=== PATIENT | female | born 1990 | race Two or more races ===

== ENCOUNTER 2019-03-27 01:33 | Emergency (ER) | payer BC ==
[~2019-03-27] VITALS: Ht 167.6 cm; Wt 59.0 kg
[2019-03-27 01:44] VITALS: BP 116/69
[2019-03-27] MEDS ORDERED: DIPHENHYDRAMINE 25MG CAPSULE PO ONE (03:45)
[2019-03-27] MEDS ORDERED: PREDNISONE 20MG TABLET PO ONE (03:45)
[2019-03-27] MEDS ORDERED: FAMOTIDINE 20MG TABLET PO ONE (03:45)
== END 2019-03-27 04:52 | disposition home or self-care (01) ==
LOC: ER 01:54
DX: S70.362A Insect bite (nonvenomous), left thigh, initial encounter (principal); S70.361A Insect bite (nonvenomous), right thigh, initial encounter; L03.116 Cellulitis of left lower limb; L03.115 Cellulitis of right lower limb; W57.XXXA Bitten or stung by nonvenomous insect and other nonvenomous arthropods, initial encounter; Y93.89 Activity, other specified; Y92.89 Other specified places as the place of occurrence of the external cause
CPT/HCPCS: 99284; J7512; Q0163